=== PATIENT | female | born 1990 | race Two or more races ===

== ENCOUNTER → 2017-02-04 | Outpatient (CLI) | payer OTHER ==
--- NOTE | 2017-02-04 13:39 | REP ---
RIGHT ANKLE, FIVE VIEWS: There is no evidence of an acute fracture, dislocation or intrinsic bone disease. The ankle mortise is anatomic. IMPRESSION: No fracture or dislocation. Signed by Phil Salter MD 02/05/2017 05:12 P
== END ==
LOC: M LRY 12:56
PROVIDERS: ATTEND Nurse Practitioner Family
DX: M25.571 Pain in right ankle and joints of right foot (principal)
CPT/HCPCS: 73610; G0463

== ENCOUNTER → 2017-05-10 | Outpatient (CLI) | payer OTHER ==
[2017-05-10 19:15] LABS: BASO % 0.4 % (0.0-1.0); EOS # 0.4 K/mm3 (0.0-0.50); EOS % 4.4 % (0.0-3.0); LARGE UNSTAINED CELL # 0.1 K/mm3 (0.0-0.4); LARGE UNSTAINED CELL % 1.4 % (0.0-4.0); LYMPH # 1.2 K/mm3 (1.5-6.5); LYMPH % 11.5 % (24.0-44.0); MEAN CORPUSCULAR HEMOGLOBIN 31.2 pg (27.0-33.0); MEAN CORPUSCULAR HGB CONC 33.4 g/dl (32.0-36.5); MEAN CORPUSCULAR VOLUME 93.4 fl (80.0-96.0); MONO # 0.3 K/mm3 (0.0-0.8); MONO % 3.5 % (0.0-5.0); NEUTROPHILS # 7.2 K/mm3 (1.8-7.7); NEUTROPHILS % 78.8 % (36.0-66.0); PLATELET COUNT, AUTOMATED 209 k/mm3 (150-450); RED CELL DISTRIBUTION WIDTH 13.2 % (11.5-14.5); WHITE BLOOD COUNT 9.1 K/mm3 (4.0-10.0)
[2017-05-12 11:25] LABS: HBsAg Prenatal NEGATIVE (NEGATIVE)
== END ==
LOC: M LRY 12:57
PROVIDERS: ATTEND Advanced Practice Midwife
DX: Z36 Encounter for antenatal screening of mother (principal); Z3A.00 Weeks of gestation of pregnancy not specified

== ENCOUNTER → 2017-05-25 | Outpatient (CLI) | payer OTHER ==
--- NOTE | 2017-05-25 16:44 | REP ---
OB ULTRASOUND: Real-time sonographic evaluation of the gravid uterus is performed. There is a single living intrauterine gestation. The estimated gestational age is 18 weeks 6 days based on LMP with EDC 10/20/2017. Today's measurements indicate appropriate growth. BPD 42 mm = 18 weeks 5 days, at the 50th percentile. HC 161 mm = 18 weeks 6 days, at the 54th percentile. AC 134 mm = 18 weeks 6 days, at the 52nd percentile. Femur length 30 mm = 19 weeks 1 days, at the 58th percentile. HC/AC ratio 1.20 within normal range. Estimated weight 267 grams at the 54th percentile. heart rate 150 beats per minute. SEEN/GROSSLY UNREMARKABLE Lateral ventricles Yes Posterior fossa Yes Upper lip Yes Four-chamber heart Yes LVOT Yes RVOT Yes Stomach Yes Cord insertion Yes Three vessel cord Yes Kidneys Yes Bladder Yes Spine Yes position: Breach. Placenta: Posterior and grade 0 with no previa or abruption. Amniotic fluid: Within normal limits. Cervix is closed and measures 3.7 cm in length. Signed by Phil Salter MD 05/25/2017 04:49 P
== END ==
LOC: M LRY 14:06
PROVIDERS: ATTEND Advanced Practice Midwife
DX: Z34.82 Encounter for supervision of other normal pregnancy, second trimester (principal); Z3A.18 18 weeks gestation of pregnancy

== ENCOUNTER → 2017-08-30 | Outpatient (CLI) | payer OTHER ==
[2017-08-30 18:02] LABS: MEAN CORPUSCULAR HEMOGLOBIN 30.8 pg (27.0-33.0); MEAN CORPUSCULAR HGB CONC 32.8 g/dl (32.0-36.5); MEAN CORPUSCULAR VOLUME 93.8 fl (80.0-96.0); PLATELET COUNT, AUTOMATED 201 10^3/uL (150-450); RED CELL DISTRIBUTION WIDTH 12.3 % (11.5-14.5)
[2017-08-31 12:05] LABS: WHITE BLOOD COUNT 10.7 10^3/uL (4.0-10.0)
== END ==
LOC: M LRY 09:53
PROVIDERS: ATTEND Advanced Practice Midwife
DX: Z36.89 Encounter for other specified antenatal screening (principal)

== ENCOUNTER → 2017-09-07 | Outpatient (CLI) | payer OTHER | LOC: M LAB 08:32 | PROVIDERS: ATTEND Advanced Practice Midwife | DX: R73.02 Impaired glucose tolerance (oral) (principal) ==

== ENCOUNTER → 2017-09-20 | Outpatient (CLI) | payer OTHER ==
--- NOTE | 2017-09-20 17:27 | REP ---
Obstetric sonography: History: Size date discrepancy. Third trimester study. Findings: Scanning through the gravid uterus demonstrates a viable single intrauterine gestation in a cephalic lie. motion is observed and heart rate is recorded at 140 beats per minute. A posterior right lateral placenta is seen grade II to III without evidence of previa. Amniotic fluid is subjectively normal. No extrauterine abnormality is observed. There has been appropriate interval growth. spine and upper extremities are less than optimally seen today due to position but these were visualized previously. No anomaly is seen. Other anatomic structures are again visualized and felt to be unremarkable. Biometry chart: BPD 8.6 cm = 34-week 6 days Head circumference 31.7 cm = 35 weeks 5 days Abdominal circumference 29.2 cm = 33 weeks 2 days Femur length 6.5 cm = 33 weeks 4 days Humeral length 5.7 cm 33 weeks 0 days HC/AC ratio normal 1.09 Cephalic index normal 0.8, Estimated weight 2263 grams 4 pounds 16 ounces 17th percentile for 35 weeks 5 days. GERARDO normal 13.9 cm. SD ratio in the umbilical cord artery by Doppler normal 2.72. Impression: Viable single intrauterine gestation at 34 weeks 0 days by today's composite sonographic criteria. Expected gestational age estimate based on prior sonography is 35 weeks 4 days. MORE by prior sonography October 21, 2017. There has been appropriate interval growth. Signed by Sebastián Varner MD 09/20/2017 09:38 P
== END ==
LOC: M RAD 08:04
PROVIDERS: ATTEND Advanced Practice Midwife
DX: O26.843 Uterine size-date discrepancy, third trimester (principal); Z3A.34 34 weeks gestation of pregnancy

== ENCOUNTER → 2017-09-21 | Outpatient (REF) | payer OTHER | LOC: M LAB REF 14:02 | PROVIDERS: ATTEND Advanced Practice Midwife | DX: Z36.85 Encounter for antenatal screening for Streptococcus B (principal); Z3A.00 Weeks of gestation of pregnancy not specified ==

== ENCOUNTER → 2017-10-07 | Outpatient (CLI) | payer OTHER | LOC: M RAD 11:50 | DX: O26.843 Uterine size-date discrepancy, third trimester (principal); Z3A.00 Weeks of gestation of pregnancy not specified | CPT/HCPCS: 76816 ==

== ENCOUNTER 2017-10-08 23:16 | Inpatient (IN) | payer OTHER ==
[2017-10-09] MEDS ORDERED: BUTORPHANOL 2 MG/ML INJ (J0595) IV (00:45)
[2017-10-09] MEDS ORDERED: PROMETHAZINE INJ 25 MG/ML VIAL (J2550) IV (00:45)
[2017-10-09] MEDS: PENICILLIN G POTASSIUM IV 5 MU in D5W MINI-BAG PLUS 100 ML IV (00:51)
[2017-10-09] MEDS: LR 1,000 ML IV (00:51)
[2017-10-09] MEDS: OXYTOCIN DRIP 30 UNITS in APPROPRIATE DILUENT 1 EA IV ×2 (00:52→07:00)
[2017-10-09 01:04] LABS: HEMOGLOBIN 9.7 g/dl (12.0-16.0); MEAN CORPUSCULAR HEMOGLOBIN 28.1 pg (27.0-33.0); MEAN CORPUSCULAR HGB CONC 33.4 g/dl (32.0-36.5); MEAN CORPUSCULAR VOLUME 84.1 fl (80.0-96.0); PLATELET COUNT, AUTOMATED 238 10^3/uL (150-450); RED BLOOD COUNT 3.45 10^6/uL (4.00-5.40); RED CELL DISTRIBUTION WIDTH 11.9 % (11.5-14.5); WHITE BLOOD COUNT 10.2 10^3/uL (4.0-10.0)
[2017-10-09 01:28] LABS: AMPHETAMINES URINE REFLEX NEGATIVE (NEGATIVE); BARBITURATES URINE REFLEX NEGATIVE (NEGATIVE); BENZODIAZEPINES URINE REFLEX NEGATIVE (NEGATIVE); CANNABINOIDS URINE REFLEX NEGATIVE (NEGATIVE); COCAINE METABOLITE URINE REFLE NEGATIVE (NEGATIVE); METHADONE URINE REFLEX NEGATIVE (NEGATIVE); OPIATES URINE REFLEX NEGATIVE (NEGATIVE); PHENCYCLIDINE URINE REFLEX NEGATIVE (NEGATIVE)
[2017-10-09] MEDS: PENICILLIN G POTASSIUM IV 2.5 MU in APPROPRIATE DILUENT 1 EA IV (05:32)
[2017-10-09] MEDS ORDERED: RHOGAM 300 MCG (1500 IU) INJ (J2790) IM (09:00)
[2017-10-09] MEDS ORDERED: ONDANSETRON 4MG/2ML VIAL (J2405) IV (09:00)
[2017-10-09] MEDS ORDERED: MEASLES,MUMPS,RUBELLA VACCINE INJ (MMR-II) (90707) SC (09:00)
[2017-10-09] MEDS ORDERED: ANUSOL HC CREAM 30GM TOP (09:00)
[2017-10-09] MEDS ORDERED: METHYLERGONOVINE MALEATE 0.2 MG TAB PO (09:00)
[2017-10-09] MEDS ORDERED: IBUPROFEN 800 MG TAB PO (09:00)
[2017-10-09] MEDS ORDERED: DIBUCAINE 1% OINTMENT 30GM TOP (09:00)
[2017-10-09] MEDS: PRENATAL VITAMINS CHEWABLE TABLET PO (15:52)
[2017-10-09] MEDS: ACETAMINOPHEN 500 MG TAB PO (15:53)
[2017-10-09] MEDS: DOCUSATE SODIUM 100 MG CAP PO (23:56)
[2017-10-10] MEDS: PRENATAL VITAMINS CHEWABLE TABLET PO (08:51)
== END 2017-10-10 16:37 | disposition home or self-care (01) | DRG 775 ==
LOC: M LDI 23:16 → M OBS 10-09 11:05
PROVIDERS: Advanced Practice Midwife
PROC: 3E033VJ Introduction of Other Hormone into Peripheral Vein, Percutaneous Approach (ICD-10-PCS; 2017-10-08)
PROC: 10E0XZZ Delivery of Products of Conception, External Approach (ICD-10-PCS; principal; 2017-10-09)
DX: O36.5930 Maternal care for other known or suspected poor fetal growth, third trimester, not applicable or unspecified (principal); Z37.0 Single live birth; Z3A.38 38 weeks gestation of pregnancy

== ENCOUNTER → 2019-08-25 | Outpatient (REF) | payer OTHER ==
[~2019-08-25] MED LIST: IBUP-1114 PO; MAPA500T2 PO; OMEP40CA97 PO; PRED10TA2; PRENTAB9 PO
[2019-08-25 20:11] LABS: HEMATOCRIT 42.6 % (36.0-47.0); HEMOGLOBIN 14.2 g/dl (12.0-15.5); MEAN CORPUSCULAR HEMOGLOBIN 32.4 pg (27.0-33.0); MEAN CORPUSCULAR HGB CONC 33.3 g/dl (32.0-36.5); MEAN CORPUSCULAR VOLUME 97.3 fl (80.0-96.0); PLATELET COUNT, AUTOMATED 241 10^3/uL (150-450); RED BLOOD COUNT 4.38 10^6/uL (4.00-5.40); WHITE BLOOD COUNT 6.4 10^3/uL (4.0-10.0)
[2019-08-25 20:29] LABS: ALBUMIN 4.3 GM/DL (3.2-5.2); ALT/SGPT 30 U/L (12-78); BILIRUBIN,TOTAL 0.4 MG/DL (0.2-1.0); BLOOD UREA NITROGEN 12 MG/DL (7-18); CALCIUM LEVEL 8.8 MG/DL (8.5-10.1); CARBON DIOXIDE LEVEL 30 MEQ/L (21-32); CHLORIDE LEVEL 105 MEQ/L (98-107); CREATININE FOR GFR 0.63 MG/DL (0.55-1.30); GLOMERULAR FILTRATION RATE > 60.0 (>60); GLUCOSE, FASTING 153 MG/DL (70-100); POTASSIUM SERUM 3.8 MEQ/L (3.5-5.1); SODIUM LEVEL 140 MEQ/L (136-145); TOTAL PROTEIN 7.6 GM/DL (6.4-8.2)
== END ==
LOC: M SFHCLERA 17:08
PROVIDERS: ATTEND Physician Assistant
DX: R00.2 Palpitations (principal); R07.89 Other chest pain
CPT/HCPCS: 71046; 80053; 84443; 85027; 93005; G0463

== ENCOUNTER → 2019-08-25 | Outpatient (CLI) | payer OTHER ==
--- NOTE | 2019-08-25 18:55 | REP ---
REASON: Chest discomfort. PRIORS: None. FINDINGS: The superior mediastinal structures are midline. The cardiac silhouette is unremarkable in size, shape, and position. The diaphragmatic surfaces of the lungs are regular, and the costophrenic angles are clear. The pulmonary bond are clear. The imaged osseous structures are intact. IMPRESSION: There is no acute cardiopulmonary disease. Electronically Signed by Abdoulaye Baker DO 08/26/2019 09:16 A
== END ==
LOC: M LRY 17:19
PROVIDERS: ATTEND Physician Assistant
DX: R07.89 Other chest pain (principal)

== ENCOUNTER 2019-08-28 08:29 | Emergency (ER) | payer OTHER ==
[~2019-08-28] VITALS: Ht 157.5 cm; Wt 52.3 kg
[~2019-08-28 08:29] MED LIST changes: -OMEP40CA97 PO; -PRED10TA2
[2019-08-28] MEDS ORDERED: PRED10TA2 (08:35)
[2019-08-28 09:42] LABS: BASO % 0.4 % (0.0-1.0); EOS # 0.1 10^3/uL (0.0-0.5); HEMATOCRIT 40.3 % (36.0-47.0); HEMOGLOBIN 13.2 g/dl (12.0-15.5); LYMPH # 1.5 10^3/uL (1.5-5.0); LYMPH % 16.3 % (24.0-44.0); MEAN CORPUSCULAR HGB CONC 32.8 g/dl (32.0-36.5); MEAN CORPUSCULAR VOLUME 97.6 fl (80.0-96.0); MONO # 0.6 10^3/uL (0.0-0.8); MONO % 6.8 % (0.0-5.0); NEUTROPHILS # 6.7 10^3/uL (1.5-8.5); NEUTROPHILS % 75.2 % (36.0-66.0); PLATELET COUNT, AUTOMATED 211 10^3/uL (150-450); RED BLOOD COUNT 4.13 10^6/uL (4.00-5.40)
[2019-08-28 09:58] LABS: HCG, SERUM QUALITATIVE NEGATIVE (NEGATIVE)
--- NOTE | 2019-08-28 10:06 | REP ---
Clinical: Chest pain . Comparison: 08/25/2019 . Technique: PA and lateral. Findings: The mediastinum and cardiac silhouette are normal. The lung bond are clear and without acute consolidation, effusion, or pneumothorax. The skeletal structures are intact and normal. Impression: 1. No acute cardiopulmonary process. Electronically Signed by Dannie Joshua MD 08/28/2019 09:58 A
[2019-08-28 10:09] LABS: ALT/SGPT 24 U/L (12-78); BILIRUBIN,DIRECT 0.1 MG/DL (0.0-0.2); BILIRUBIN,TOTAL 0.5 MG/DL (0.2-1.0); BLOOD UREA NITROGEN 9 MG/DL (7-18); CARBON DIOXIDE LEVEL 29 MEQ/L (21-32); CHLORIDE LEVEL 108 MEQ/L (98-107); CK-MB VALUE MASS < 1.0 NG/ML (<3.6); CPK CREATINE PHOSPHOKINASE 44 U/L (26-192); GLOMERULAR FILTRATION RATE > 60.0 (>60); GLUCOSE, FASTING 78 MG/DL (70-100); LIPASE 150 U/L (73-393); MB/CK RELATIVE INDEX 2.27 (< OR =4); POTASSIUM SERUM 3.5 MEQ/L (3.5-5.1); SODIUM LEVEL 143 MEQ/L (136-145); TOTAL PROTEIN 7.3 GM/DL (6.4-8.2); TROPONIN I < 0.02 NG/ML (< 0.10)
[2019-08-28 10:21] LABS: C REACTIVE PROTEIN QUANTITATIV < 0.30 MG/DL (0.00-0.30)
[2019-08-28] MEDS ORDERED: GI COCKTAIL 50ML BTL(HYOSCYAMINE/MAALOX/LIDOCAINE VISCOUS)(1:3:1) PO ONE (10:30)
[2019-08-28 10:33] LABS: ERYTHROCYTE SEDIMENTATION RATE 4 mm/hr (0-20)
[2019-08-28] MEDS ORDERED: OMEP40CA97 PO (11:04)
[2019-08-28 11:13] VITALS: BP 116/72
--- NOTE | 2019-08-28 19:31 | ECGEPIP ---
[facility] - ED Test Date: 2019-08-28 Pat Name: ISAMAR RIVERA Department: Room: - Gender: Female [employer] Sawyer: [facility] : 1990 Requested By: Marina Darnell Order Number: [id number] Reading MD: Maykel Blair Measurements Intervals [place] Rate: 69 P: 62 WV: 151 QRS: 68 QRSD: 89 T: 49 QT: 387 QTc: 416 Interpretive Statements SINUS RHYTHM WITH SINUS ARRHYTHMIA POOR R WAVE PROGRESSION NO PRIORS FOR COMPARISON Electronically Signed on 08-28-2019 19:31:55 EST by Maykel Blair
== END 2019-08-28 11:11 | disposition home or self-care (01) ==
LOC: M ED 08:29
DX: K29.70 Gastritis, unspecified, without bleeding (principal); Z79.899 Other long term (current) drug therapy